=== PATIENT | female | born 1975 | race African-American/Black ===

== ENCOUNTER 2020-05-20 10:41 | Emergency (ER) | payer SELFPAY ==
[~2020-05-20] VITALS: Ht 170.2 cm; Wt 65.3 kg
--- NOTE | 2020-05-20 10:45 | NUR ---
SEEN AND EXAMINED BY .
--- NOTE | 2020-05-20 10:52 | NUR ---
ER PHLEB AT BEDSIDE FOR BLOOD DRAW.
[2020-05-20] MEDS ORDERED: LORAZEPAM INJ 2 MG/ML VIAL ONE (10:58)
[2020-05-20] MEDS ORDERED: HALOPERIDOL LACTATE INJ 5 MG/ML VIAL ONE ×2 (10:58→11:26)
[2020-05-20] MEDS ORDERED: LORAZEPAM INJ 2 MG/ML VIAL IM ONE (11:00)
[2020-05-20] MEDS ORDERED: HALOPERIDOL LACTATE INJ 5 MG/ML VIAL IM ONE ×2 (11:00→11:30)
[2020-05-20 11:05] LABS: BASOPHILS # (AUTO) 0.2 /CMM (0.0-0.2); BASOPHILS % (AUTO) 3.4 % (0.0-2.0); EOSINOPHILS % (AUTO) 3.3 % (0.0-6.0); HEMATOCRIT 46 % (33-45); HEMOGLOBIN 15.3 g/dL (11.5-14.8); LYMPHOCYTES # (AUTO) 1.3 /CMM (0.8-4.8); LYMPHOCYTES % (AUTO) 21.5 % (20.0-44.0); MEAN CORPUSCULAR HGB CONC 33 g/dl (31.0-36.0); MEAN CORPUSCULAR VOLUME 93 fL (82-100); MONOCYTES # (AUTO) 0.3 /CMM (0.1-1.30); NEUTROPHILS # (AUTO) 4.1 /CMM (1.8-8.9); NEUTROPHILS % (AUTO) 66.8 % (43.0-81.0); PLATELET COUNT (AUTO) 235 /CMM (150-450); RED BLOOD CELL COUNT(AUTO) 4.97 MIL/uL (4.0-5.2); WHITE BLOOD COUNT (AUTO) 6.1 K/uL (4.3-11.0)
[2020-05-20 11:15] LABS: CALCIUM, SERUM 8.3 mg/dL (8.5-10.1); CARBON DIOXIDE 21 mmol/L (21-32); CHLORIDE 100 mmol/L (98-107); CREATININE 1.4 mg/dL (0.6-1.3); GLUCOSE 103 mg/dL (74-106); POTASSIUM 3.5 mmol/L (3.5-5.1); SODIUM SERUM 140 mmol/L (136-145); UREA NITROGEN, BLOOD 16 mg/dL (7-18)
[2020-05-20 11:20] LABS: ALANINE AMINOTRANSFERASE 26 U/L (12-78); ALBUMIN 4.1 g/dL (3.4-5.0); ALCOHOL, BLOOD < 3 mg/dL (0-0); ALKALINE PHOSPHATASE 71 U/L (46-116); ASPARTATE AMINOTRANSFERASE 16 U/L (15-37); BILIRUBIN,DIRECT 0.1 mg/dL (0.0-0.2); BILIRUBIN,TOTAL 0.4 mg/dL (0.2-1.0); TOTAL PROTEIN, SERUM 7.8 g/dL (6.4-8.2)
[2020-05-20 11:22] LABS: ACETAMINOPHEN < 2 ug/ml (10-30)
[2020-05-20] MEDS ORDERED: MIDAZOLAM HCL 5 MG/5ML VIAL ONE (11:27)
[2020-05-20] MEDS ORDERED: MIDAZOLAM HCL 5 MG/5ML VIAL IM ONE (11:30)
[2020-05-20] MEDS ORDERED: MIDAZOLAM HCL 2 MG/2ML VIAL IM ONE (12:00)
--- NOTE | 2020-05-20 13:18 | NUR ---
COVID SPECIMEN COLLECTED AND SENT TO LAB.
--- NOTE | 2020-05-20 13:22 | NUR ---
URINE SPECIMEN COLLECTED AND SENT TO LAB.
[2020-05-20 13:27] LABS: BILIRUBIN,URINE SMALL (NEGATIVE); COLOR,URINE DARK YELLOW (YELLOW); LEUKOCYTE ESTERASE ,URINE Moderate (NEGATIVE); NITRITE, URINE Positive (NEGATIVE); PH,URINE 5.5 (5.0-8.0); PROTEIN,URINE 100 mg/dl (NEGATIVE); UGLUCOSE Negative (NEGATIVE)
[2020-05-20 13:58] LABS: BACTERIA,URINE 2+ /HPF (None Seen); SQUAMOUS EPITHELIAL CELL,UR Few /HPF (None Seen); WBC,URINE 21-50 /HPF (0-3)
--- NOTE | 2020-05-20 21:19 | NUR ---
JAMSHID CORBETT RN IS ON HER WAY TO SEE PATIENT.
[2020-05-20] MEDS ORDERED: CEPH500T PO (22:30)
[2020-05-20] MEDS ORDERED: CEPHALEXIN MONOHYDRATE 500 MG CAPSULE PO ONE ×2 (22:30)
--- NOTE | 2020-05-20 22:44 | NUR ---
Patient discharged to home in stable condition. Written and verbal after care instructions given. Patient verbalizes understanding of instruction and RX. Pt denies SI and HI. vss.
[2020-05-20 22:45] VITALS: BP 119/73
== END 2020-05-20 22:46 | disposition home or self-care (01) ==
LOC: ER 10:44
DX: R45.1 Restlessness and agitation (principal); Z59.0 Homelessness; F39 Unspecified mood [affective] disorder; R41.82 Altered mental status, unspecified; Z20.822 Contact with and (suspected) exposure to COVID-19
CPT/HCPCS: 36415; 80048; 80076; 80299; 80307; 80320; 81001; 85025; 87086; 87426; 96372 ×2; 99291; C9803; J1630 ×2; J2060; J2250; 87186-TC; G0480